=== PATIENT | female | born 1945 | race Caucasian/White ===

== ENCOUNTER 2023-07-28 20:22 | Emergency (ER) | payer OTHER ==
[~2023-07-28] VITALS: Ht 144.8 cm; Wt 52.2 kg
[2023-07-28 20:30] VITALS: BP_SYST 154; PULSE 90; RESP 16; TEMP 97.3; O2SAT 97
[2023-07-29] MEDS ORDERED: LIDO113G2 TP ×2 (01:39→02:03)
[2023-07-29] MEDS ORDERED: ACET-2634 PO ×2 (01:39→02:03)
[2023-07-29 01:58] VITALS: BP_SYST 149; PULSE 90; RESP 19; TEMP 97.3; O2SAT 97
== END 2023-07-29 01:58 | disposition home or self-care (01) ==
LOC: SED 20:22
DX: S00.03XA Contusion of scalp, initial encounter (principal); I10 Essential (primary) hypertension; Z88.6 Allergy status to analgesic agent; Z79.899 Other long term (current) drug therapy; W08.XXXA Fall from other furniture, initial encounter; Y93.89 Activity, other specified; Y92.511 Restaurant or cafe as the place of occurrence of the external cause; Y99.8 Other external cause status
CPT/HCPCS: 70450-TC; 72125-TC; 76376; 99284